=== PATIENT | female | born 2000 | race Caucasian/White ===

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

== ENCOUNTER 2022-06-23 10:32 | Inpatient (IN) ==
[2022-06-23 01:08] LABS: Basophils % 0.3 %; Eosinophils % 0.4 %; Hematocrit 33.4 % (35.3-44.9); Hemoglobin 10.4 g/dL (11.5-15.4); Immature Granulocytes % 0.5 % (0-4); Lymphocytes # 1.9 K/mcL (0.6-4.6); Lymphocytes % 20.7 %; Mean Corpuscular HGB Conc 31.1 g/dL (31.6-35.5); Mean Corpuscular Hemoglobin 26.4 pg (28.0-33.3); Mean Corpuscular Volume 84.8 fL (83.0-100.0); Mean Platelet Volume 11.4 fL (9.4-12.4); Monocytes # 0.6 K/mcL (0.0-1.3); Monocytes % 6.8 %; Neutrophils # 6.5 K/mcL (1.6-8.9); Platelet Count 251 K/mcL (140-400); Red Blood Count 3.94 M/mcL (3.82-4.97); Red Cell Distribution Width 13.2 % (11.5-14.5); Segmented Neutrophils % 71.3 %; White Blood Count 9.2 K/mcL (4.3-11.1)
[2022-06-23 01:17] LABS: Prothrombin Time 11.4 Seconds (9.4-12.1)
[2022-06-23 01:19] LABS: Activated Partial Thrombo Time 25.3 Seconds (26.0-36.0)
[~2022-06-23 10:32] MED LIST: *HR* HYDROmorphone PF 0.5 MG/0.5 ML SYRINGE IVP PRN; *HR* Nalbuphine 10 MG/ML AMPUL IV PRN; Famotidine 20 MG/2 ML VIAL IVP PRN; Metoclopramide 10 MG/2 ML VIAL IVP PRN; Naloxone 0.4 MG/ML INJ IVP PRN; Ondansetron 4 MG/2 ML VIAL IVP PRN; Ringers Solution, Lactated 1,000 ML IVC SCH; Ringers Solution, Lactated 1,000 ML ONE
[2022-06-23] MEDS ORDERED: CeFAZolin 2,000 MG/120 ML BAG IVPB ONE (10:34)
[2022-06-23] MEDS ORDERED: Oxytocin 30 UNIT/503 ML BAG IVC ONE ×2 (11:19→15:13)
[2022-06-23] MEDS ORDERED: *HR* Morphine Sulfate/PF 10 MG/10 ML AMPUL ONE (11:51)
[2022-06-23] MEDS ORDERED: EPHEDrine 50 MG/ML VIAL ONE (11:51)
[2022-06-23] MEDS ORDERED: *HR* FentaNYL (PF) 100 MCG/2 ML VIAL ONE (11:52)
[2022-06-23] MEDS ORDERED: Ondansetron 4 MG/2 ML VIAL ONE (11:52)
[2022-06-23] MEDS ORDERED: Ketorolac 30 MG/ML VIAL ONE (11:52)
[2022-06-23] MEDS ORDERED: Acetaminophen IV 1,000 MG/100 ML BAG IVPB ONE (11:52)
[2022-06-23 11:54] LABS: Amphetamine Screen,Urine Negative ng/mL (Cutoff=1000); Barbiturate Screen,Urine Negative ng/mL (Cutoff=200); Benzodiazepines Screen,Urine Negative ng/mL (Cutoff=200); Cannabinoid Screen,Urine Negative ng/mL (Cutoff = 50); Cocaine Screen,Urine Negative ng/mL (Cutoff= 300); Opiate Screen,Urine Negative ng/mL (Cutoff=300); Phencyclidine Screen,Urine Negative ng/mL (Cutoff=25)
[2022-06-23] MEDS ORDERED: *HR* Midazolam HCl 2 MG/2 ML VIAL ONE (12:13)
[2022-06-23] MEDS ORDERED: *HR* Nalbuphine 10 MG/ML AMPUL IV PRN (14:22)
[2022-06-23] MEDS ORDERED: Rho Immune Globulin 1,500 UNIT SYRINGE IM ONE (15:36)
[2022-06-23] MEDS ORDERED: Simethicone 80 MG TAB.CHEW PO PRN (15:36)
[2022-06-23] MEDS ORDERED: *HR* OxyCODONE Immed Rel 5 MG TABLET PO PRN (15:36)
[2022-06-23] MEDS ORDERED: Metoclopramide 10 MG/2 ML VIAL IVP PRN (15:36)
[2022-06-23] MEDS ORDERED: Ondansetron 4 MG/2 ML VIAL IVP PRN (15:36)
[2022-06-23] MEDS ORDERED: OXYTOCIN/RINGERS LACTATE 10 UNIT/166.6 ML BAG IVC ONE (15:36)
[2022-06-23] MEDS ORDERED: Ringers Solution, Lactated 1,000 ML IVC SCH (15:36)
[2022-06-23] MEDS: Ibuprofen 600 MG TABLET PO SCH (18:22)
[2022-06-23] MEDS: Acetaminophen 325 MG TABLET PO SCH (18:22)
[2022-06-24] MEDS: Ibuprofen 600 MG TABLET PO SCH ×4 (00:57→23:48)
[2022-06-24] MEDS: Acetaminophen 325 MG TABLET PO SCH ×4 (00:57→23:48)
[2022-06-24 04:30] LABS: Basophils % 0.2 %; Eosinophils % 0.1 %; Hematocrit 32.6 % (35.3-44.9); Hemoglobin 10.1 g/dL (11.5-15.4); Immature Granulocytes % 0.7 % (0-4); Lymphocytes % 15.9 %; Mean Corpuscular Hemoglobin 25.8 pg (28.0-33.3); Mean Corpuscular Volume 83.2 fL (83.0-100.0); Mean Platelet Volume 11.3 fL (9.4-12.4); Monocytes # 0.9 K/mcL (0.0-1.3); Monocytes % 7.1 %; Neutrophils # 9.5 K/mcL (1.6-8.9); Platelet Count 234 K/mcL (140-400); Red Blood Count 3.92 M/mcL (3.82-4.97); Red Cell Distribution Width 13.4 % (11.5-14.5); White Blood Count 12.5 K/mcL (4.3-11.1)
[2022-06-24 07:27] VITALS: O2SAT 98
[2022-06-24] MEDS ORDERED: Prenatal Vit/FA 1 EACH TABLET PO SCH (09:00)
[2022-06-25] MEDS: Acetaminophen 325 MG TABLET PO SCH (06:04)
[2022-06-25] MEDS: Ibuprofen 600 MG TABLET PO SCH (06:05)
[2022-06-25 07:31] VITALS: BP 115/80; PULSE 65; TEMP 97.7
== END 2022-06-25 08:09 | disposition home or self-care (01) | DRG 540 ==
LOC: 1NENULAB → 1NENUOBS 15:36
PROVIDERS: ADMIT Advanced Practice Midwife; ATTEND Advanced Practice Midwife